=== PATIENT | male | born 1955 | race Caucasian/White ===

== ENCOUNTER → 2018-10-13 09:35 | Outpatient (CLI) | payer BC, SELFPAY ==
[2018-10-13 10:44] LABS: Anion Gap 5 (5-15); BUN 24 mg/dL (7-18); Calcium,Total 9.2 mg/dL (8.5-10.1); Chloride 105 mmol/L (98-107); Cholesterol 171 mg/dL (200); EST Glomerular Filtration Rate 65 mL/min (>60); Est Glom Filt Rate - Afr Amer 78 mL/min (>60); Glucose 111 mg/dL (74-106); High Density Lipoprotein 46 mg/dL; PSA,Total - Annual Screen 4.32 ng/mL (0.00-4.00); Potassium 4.3 mmol/L (3.5-5.1); Sodium Level 136 mmol/L (136-145); Triglycerides 154 mg/dL; Very Low Density Lipoprotein 31 mg/dL (5-40)
== END ==
PROVIDERS: Family Provider Family Medicine; PCP Family Medicine; Referring Provider Family Medicine; Visit Provider Family Medicine
DX: R53.83 Other fatigue (principal); Z12.5 Encounter for screening for malignant neoplasm of prostate; Z13.220 Encounter for screening for lipoid disorders
CPT/HCPCS: 36415; 80048; 80061; 84153; 84443; G0103

== ENCOUNTER → 2019-04-03 08:14 | Outpatient (CLI) | payer BC, SELFPAY ==
[2019-04-03 11:04] LABS: PSA,Total- Diagnostic 3.94 ng/mL (0.0-4.0)
== END ==
PROVIDERS: Family Provider Family Medicine; PCP Family Medicine; Referring Provider Family Medicine; Visit Provider Family Medicine
DX: R97.20 Elevated prostate specific antigen [PSA] (principal)
CPT/HCPCS: 36415; 84153

== ENCOUNTER → 2022-01-01 | Outpatient (CLI) | payer MEDICARE, OTHER, SELFPAY ==
--- NOTE | 2022-01-01 16:09 | STRESSREP_ITS ---
Stress Test Report Exercise myocardial perfusion stress test. 66-year-old male with a history of chest pain. Stress protocol: Resting EKG demonstrates normal sinus rhythm with a rate of 65 bpm normal intervals are noted resting blood pressure is 152/84 mmHg. The patient exercised according to the regular Albert protocol for a total duration of 6 minutes and 50 seconds. The maximum heart rate attained was 130 bpm which was 84% of max impacted heart rate. Patient completed 50 seconds to stage III of the Albert protocol. At rest there were no ST or T wave changes noted suggest ischemia at peak exercise upsloping ST changes only were noted with did not meet the criteria for ischemia. No clinical angina was noted. The test was terminated due to exaggerated BP response. The peak blood pressure was 224/90 mmHg. Rate-pressure approach was 26,200. Myocardial perfusion protocol. 14.9 mCi of technetium 99m sestamibi was injected at rest. The patient exercised according to regular Albert protocol for total duration of 6 minutes and 50 seconds. At peak exercise 44.5 mCi of technetium 99m sestamibi was injected stress images were obtained stress and rest images were reconstructed and compared in the short axis vertical long and horizontal long axis. Gated images were also obtained. Perfusion SPECT analysis: Review of the stress images demonstrate normal uptake of tracer noted in all areas of the myocardium. The resting images similar demonstrate normal uptake of tracer noted in all areas of the myocardium. No areas of reversibility are n oted to suggest ischemia and no previous infarct is noted. Gated SPECT analysis: The gated ejection fraction is 66%. Conclusion: Normal exercise myocardial perfusion stress test at a moderate workload. Preserved ejection fraction.
== END | disposition home or self-care (01) ==
LOC: CVS 06:13
PROVIDERS: PCP Internal Medicine; Referring Provider Internal Medicine; Visit Provider Internal Medicine
DX: R06.09 Other forms of dyspnea (principal)
CPT/HCPCS: 78452; 93017; A9500; A4216

== ENCOUNTER → 2023-01-24 | Outpatient (CLI) | payer MEDICARE, OTHER, SELFPAY ==
[2023-01-24 09:38] LABS: PSA,Total- Diagnostic 4.45 ng/mL (0.0-4.0)
== END | disposition home or self-care (01) ==
PROVIDERS: PCP Internal Medicine
DX: R97.20 Elevated prostate specific antigen [PSA] (principal)
CPT/HCPCS: 36415; 84153